=== PATIENT | male | born 1975 | race Caucasian/White ===

== ENCOUNTER 2020-02-23 15:56 | Observation (INO) ==
[2020-02-23] MEDS ORDERED: NS 0.9% 1000 ml BAG 1,000 ML IV ONE (17:38)
[2020-02-23] MEDS ORDERED: Al Hydrox/Mg Hydrox/Simet LIQ 30 ML UDC PO ONE (17:38)
[2020-02-23 18:08] LABS: ABS Monocytes 1.6 10^3/ul (0-0.8); ABS Neutrophils 10.2 10^3/ul (1.5-7.7); Eosinophil % 0.3 %; Hematocrit 48 % (42-52); Hemoglobin 16.5 g/dL (14.0-18.0); Lymphocyte % 7.9 %; Mean Corpuscular HGB Conc 35 g/dL (31-36); Mean Corpuscular Hemoglobin 33 pg (27-31); Mean Corpuscular Volume 95 fL (80-94); Mean Platelet Volume 11.2 fL (7.4-10.4); Nucleated Red Blood Cells % 0.1; Platelet Count 204 10^3/uL (150-450); Red Blood Count 5.03 10^6 /uL (4.18-5.48); Red Cell Distribution Width 13 % (10-15); White Blood Count 12.9 10^3/uL (3.5-10.8)
[2020-02-23 18:28] LABS: ALT 33 U/L (7-52); AST 22 U/L (13-39); Albumin 4.8 g/dL (3.2-5.2); Albumin/Globulin Ratio 1.4 (1-3); Alkaline Phosphatase 58 U/L (34-104); Anion Gap 8 mmol/L (2-11); BUN/Creatinine Ratio 7.3 (8-20); Blood Urea Nitrogen 8 mg/dL (6-24); C Reactive Protein 95.62 mg/L (<8.01); CO2 Carbon Dioxide 26 mmol/L (22-32); Calcium 9.8 mg/dL (8.6-10.3); Chloride 99 mmol/L (101-111); EGFR African American 88.4 (>60); EGFR Non-African American 73.1 (>60); Globulin 3.5 g/dL (2-4); Glucose 126 mg/dL (70-100); Lipase < 10 U/L (11.0-82.0); Potassium 3.6 mmol/L (3.5-5.0); Sodium 133 mmol/L (135-145); Total Protein 8.3 g/dL (6.4-8.9)
[2020-02-23] MEDS ORDERED: Iohexol 300 (CONTRAST) 10 ML SDV IV ONE (19:05)
[2020-02-23] MEDS ORDERED: Piperacillin/Tazobac ADVAN 3.375 GM in NS 0.9% 100 ml BAG 100 ML IV ONE (20:18)
[2020-02-23] MEDS ORDERED: Piperacillin/Tazobac 3.375 GM BAG ONE (20:47)
[2020-02-23] MEDS ORDERED: Zosyn per Pharmacy NOTE FOLLOW UP SCH (21:00)
[2020-02-23] MEDS ORDERED: Ondansetron 4 mg VIAL 2 MG/ML 2 ml VIAL IV PRN (21:20)
[2020-02-23] MEDS ORDERED: Morphine 2 MG/ML SYRINGE IV PRN (21:20)
[2020-02-23] MEDS ORDERED: NS 0.9% 1000 ml BAG 1,000 ML IV SCH (21:30)
[2020-02-23 21:42] LABS: INR 1.19 (0.82-1.09)
[2020-02-24] MEDS: ZOSYN 3.375 GM Q8H per EXTENDED INFUSION IV SCH ×2 (00:34→08:21)
[2020-02-24 08:10] LABS: ABS Eosinophils 0.1 10^3/ul (0-0.6); ABS Lymphocytes 1.3 10^3/ul (1.0-4.8); ABS Monocytes 1.1 10^3/ul (0-0.8); Hematocrit 42 % (42-52); Hemoglobin 14.6 g/dL (14.0-18.0); Lymphocyte % 14.8 %; Mean Corpuscular HGB Conc 35 g/dL (31-36); Mean Corpuscular Hemoglobin 33 pg (27-31); Mean Corpuscular Volume 96 fL (80-94); Mean Platelet Volume 11.2 fL (7.4-10.4); Platelet Count 148 10^3/uL (150-450); Red Blood Count 4.42 10^6 /uL (4.18-5.48); Red Cell Distribution Width 13 % (10-15); White Blood Count 8.5 10^3/uL (3.5-10.8)
[2020-02-24 08:23] LABS: BUN/Creatinine Ratio 7.6 (8-20); Calcium 8.3 mg/dL (8.6-10.3); EGFR African American 93.3 (>60); EGFR Non-African American 77.1 (>60); Potassium 4.1 mmol/L (3.5-5.0)
[2020-02-24] MEDS ORDERED: fentaNYL 250 mcg/5 ml 50 MCG/ML 5 ml VIAL (250 MCG) ONE (11:36)
[2020-02-24] MEDS ORDERED: Rocuronium 50 mg VIAL 10 mg/ml 5 ml VIAL (50 mg) ONE (11:36)
[2020-02-24] MEDS ORDERED: Midazolam 5 mg/5 ml VIAL 1 mg/ml 5 ml VIAL (5 mg) ONE (11:36)
[2020-02-24] MEDS ORDERED: Dexamethasone IV 4 MG/ML VIAL 1 ml VIAL ONE (11:38)
[2020-02-24] MEDS ORDERED: Propofol 10 MG/ML 20 ML BTL ONE (11:38)
[2020-02-24] MEDS ORDERED: Lidocaine 2% PF 5 ML VIAL ONE (11:40)
[2020-02-24] MEDS ORDERED: Phenylephrine 40 mcg/mL 10mL (400mcg) SYRINGE ONE (11:40)
[2020-02-24] MEDS ORDERED: Bupivacaine 0.25% SDV 30 ML ONE (11:44)
[2020-02-24] MEDS ORDERED: Famotidine IV 10 MG/ML 2 ml VIAL (20 mg) IV SLOW PU ONE (11:57)
[2020-02-24] MEDS ORDERED: Sodium Citrate/Citric Acid LIQ 15 ML UDC PO ONE (11:57)
[2020-02-24] MEDS ORDERED: Famotidine IV 10 MG/ML 2 ml VIAL (20 mg) ONE (11:58)
[2020-02-24] MEDS ORDERED: Sodium Citrate/Citric Acid LIQ 15 ML UDC ONE (11:58)
[2020-02-24] MEDS ORDERED: Remifentanil 2 MG VIAL ONE (12:38)
[2020-02-24] MEDS ORDERED: Sugammadex 500 MG/5 ML 5 ml VIAL IV PUSH ONE (12:46)
[2020-02-24] MEDS ORDERED: Ondansetron 4 mg VIAL 2 MG/ML 2 ml VIAL ONE (12:46)
[2020-02-24] MEDS ORDERED: Phenylephrine IV 10 MG/ML 1 ml VIAL ONE (13:00)
[2020-02-24] MEDS ORDERED: HYDROmorphone 1 MG/1 ML SYRINGE IV PRN (13:24)
[2020-02-24] MEDS ORDERED: Ondansetron 4 mg VIAL 2 MG/ML 2 ml VIAL IV PRN (13:24)
[2020-02-24] MEDS ORDERED: Naloxone 0.4 mg VIAL 0.4 mg/ml 1 ml VIAL IV PRN (13:24)
[2020-02-24] MEDS ORDERED: Acetaminophen IV 1 GM/100ML 100 ML ONE (13:25)
[2020-02-24] MEDS ORDERED: fentaNYL 100 mcg/2 ml 50 MCG/ML VIAL ONE (14:11)
[2020-02-24] MEDS: fentaNYL 100 mcg/2 ml 50 MCG/ML VIAL IV PRN ×3 (14:13→14:59)
[2020-02-24 15:56] VITALS: BP 120/78
== END 2020-02-24 16:10 | disposition home or self-care (01) | DRG 263 ==
LOC: ED 15:56 → INTOOBSV 20:36 → MEDTELE 20:36
PROVIDERS: ADMIT Internal Medicine; ATTEND Surgery